=== PATIENT | female | born 1940 | race Caucasian/White ===

== ENCOUNTER → 2023-07-27 10:55 | Outpatient (REF) | payer OTHER, SELFPAY | LOC: WOUND 10:55 | PROVIDERS: ATTENDING PHYSICIAN Surgery; FAMILY PHYSICIAN Family Medicine | DX: L97.313 Non-pressure chronic ulcer of right ankle with necrosis of muscle (principal); M14.671 Charcot's joint, right ankle and foot; M14.672 Charcot's joint, left ankle and foot; Z96.641 Presence of right artificial hip joint; M25.372 Other instability, left ankle; M25.371 Other instability, right ankle; I10 Essential (primary) hypertension; G89.29 Other chronic pain | CPT/HCPCS: 11042 ==

== ENCOUNTER → 2023-09-20 18:32 | Outpatient (REF) | payer OTHER, SELFPAY | LOC: CLAB 18:32 | PROVIDERS: ATTENDING PHYSICIAN Family Medicine | DX: M19.90 Unspecified osteoarthritis, unspecified site (principal); M84.672K Pathological fracture in other disease, left ankle, subsequent encounter for fracture with nonunion; E66.01 Morbid (severe) obesity due to excess calories; I10 Essential (primary) hypertension; E78.5 Hyperlipidemia, unspecified; I89.0 Lymphedema, not elsewhere classified; M81.0 Age-related osteoporosis without current pathological fracture | CPT/HCPCS: 87070; 87077; 87147; 87186; 87205 ==

== ENCOUNTER → 2023-10-02 09:20 | Outpatient (REF) | payer OTHER, SELFPAY ==
[2023-10-02 11:04] LABS: % Basophils 0.8 % (0-2); % Eosinophils 17.2 % (0-6); % Immature Granulocytes 0.3 % (0-0.5); % Monocytes 8.5 % (1.7-9.3); % Neutrophils 42.2 % (42.2-75.2); Absolute Basophils 0.1 10^3/uL (0-0.2); Absolute Eosinophils 1.1 10^3/uL (0-0.7); Absolute Monocytes 0.5 10^3/uL (0.1-0.6); Absolute Neutrophils 2.7 10^3/uL (1.4-6.5); Hematocrit 27.8 % (37.0-47.0); Hemoglobin 9.5 g/dL (12.0-16.0); Mean Corp Hgb Conc. 34.2 g/dL (33.0-37.0); Mean Corpuscular Hgb 29.6 pg (27.0-31.0); Mean Corpuscular Volume 86.6 fL (81.0-99.0); Mean Platelet Volume 10.2 fL (7.4-10.4); Nucleated Red Blood Cells % 0 %; Platelet Count 224 10^3/uL (130-400); Red Blood Cell Count 3.21 10^6/uL (4.20-5.40); Red Cell Dist. Width 14.3 % (11.5-14.5); White Blood Cell Count 6.3 10^3/uL (4.8-10.8)
[2023-10-02 11:29] LABS: ALT (SGPT) 15 U/L (0-35); AST (SGOT) 28 U/L (14-36); Albumin 3.1 g/dl (3.5-5.0); Alkaline Phosphatase 90 U/L (38-126); Blood Urea Nitrogen 37 mg/dl (7-17); Calcium 9.2 mg/dl (8.4-10.2); Carbon Dioxide 20 mmol/L (22-30); Chloride 108 mmol/L (98-107); Glucose 87 mg/dl (70-99); Potassium 4.1 mmol/L (3.5-5.1); Sodium 133 mmol/L (135-145); Total Bilirubin 0.3 mg/dl (0.2-1.3); eGFR > 60.00
[2023-10-02 11:39] LABS: Erythrocyte Sed Rate 79 mm/hour (0-20)
[2023-10-02 12:15] LABS: Glycohemoglobin (HgbA1c) 5.7 % (4.0-5.6)
== END ==
LOC: OLABP 09:20
PROVIDERS: ATTENDING PHYSICIAN Family Medicine
DX: M19.90 Unspecified osteoarthritis, unspecified site (principal); M84.672K Pathological fracture in other disease, left ankle, subsequent encounter for fracture with nonunion; E66.01 Morbid (severe) obesity due to excess calories; I10 Essential (primary) hypertension; E78.5 Hyperlipidemia, unspecified; I89.0 Lymphedema, not elsewhere classified; M81.0 Age-related osteoporosis without current pathological fracture
CPT/HCPCS: 36415; 80053; 83036; 85025; 85652; 86140

== ENCOUNTER → 2023-10-06 10:49 | Outpatient (REF) | payer OTHER, SELFPAY ==
[2023-10-06 12:54] LABS: Blood Urea Nitrogen 47 mg/dl (7-17); Calcium 9.4 mg/dl (8.4-10.2); Carbon Dioxide 23 mmol/L (22-30); Chloride 107 mmol/L (98-107); Glucose 87 mg/dl (70-99); Potassium 4.3 mmol/L (3.5-5.1); Sodium 132 mmol/L (135-145); eGFR > 60.00
== END ==
LOC: OLABP 10:49
PROVIDERS: ATTENDING PHYSICIAN Family Medicine
DX: M19.90 Unspecified osteoarthritis, unspecified site (principal); I10 Essential (primary) hypertension; M84.672K Pathological fracture in other disease, left ankle, subsequent encounter for fracture with nonunion; E66.01 Morbid (severe) obesity due to excess calories; E78.5 Hyperlipidemia, unspecified; I89.0 Lymphedema, not elsewhere classified
CPT/HCPCS: 36415; 80048

== ENCOUNTER → 2023-10-19 09:51 | Outpatient (REF) | payer OTHER, SELFPAY ==
[2023-10-19 11:00] LABS: ALT (SGPT) 14 U/L (0-35); AST (SGOT) 26 U/L (14-36); Albumin 3.1 g/dl (3.5-5.0); Alkaline Phosphatase 74 U/L (38-126); Blood Urea Nitrogen 55 mg/dl (7-17); Calcium 9.5 mg/dl (8.4-10.2); Carbon Dioxide 21 mmol/L (22-30); Chloride 106 mmol/L (98-107); Glucose 89 mg/dl (70-99); Sodium 137 mmol/L (135-145); Total Bilirubin 0.3 mg/dl (0.2-1.3); Total Protein 6.1 g/dl (6.3-8.2); eGFR > 60.00
[2023-10-19 11:01] LABS: % Basophils 1.1 % (0-2); % Immature Granulocytes 0.2 % (0-0.5); % Lymphocytes 35.2 % (20.5-51.1); % Monocytes 11.4 % (1.7-9.3); % Neutrophils 42.1 % (42.2-75.2); Absolute Basophils 0.1 10^3/uL (0-0.2); Absolute Eosinophils 0.6 10^3/uL (0-0.7); Absolute Monocytes 0.6 10^3/uL (0.1-0.6); Absolute Neutrophils 2.4 10^3/uL (1.4-6.5); Hematocrit 29.2 % (37.0-47.0); Hemoglobin 9.9 g/dL (12.0-16.0); Mean Corp Hgb Conc. 33.9 g/dL (33.0-37.0); Mean Corpuscular Hgb 29.6 pg (27.0-31.0); Mean Corpuscular Volume 87.2 fL (81.0-99.0); Mean Platelet Volume 10.6 fL (7.4-10.4); Nucleated Red Blood Cells % 0 %; Platelet Count 220 10^3/uL (130-400); Red Blood Cell Count 3.35 10^6/uL (4.20-5.40); Red Cell Dist. Width 14.5 % (11.5-14.5); White Blood Cell Count 5.6 10^3/uL (4.8-10.8)
[2023-10-19 11:44] LABS: Erythrocyte Sed Rate 65 mm/hour (0-20)
== END ==
LOC: OLABPG 09:51
PROVIDERS: ATTENDING PHYSICIAN Family Medicine
DX: M19.90 Unspecified osteoarthritis, unspecified site (principal); I10 Essential (primary) hypertension; M84.672K Pathological fracture in other disease, left ankle, subsequent encounter for fracture with nonunion; E66.01 Morbid (severe) obesity due to excess calories; E78.5 Hyperlipidemia, unspecified; I89.0 Lymphedema, not elsewhere classified; M81.0 Age-related osteoporosis without current pathological fracture
CPT/HCPCS: 36415; 80053; 85025; 85652; 86140

== ENCOUNTER → 2023-10-23 13:40 | Outpatient (REF) | payer OTHER, SELFPAY | LOC: WOUND 13:40 | PROVIDERS: ATTENDING PHYSICIAN Surgery; FAMILY PHYSICIAN Family Medicine | DX: L97.313 Non-pressure chronic ulcer of right ankle with necrosis of muscle (principal); M14.671 Charcot's joint, right ankle and foot; M14.672 Charcot's joint, left ankle and foot; M25.372 Other instability, left ankle; M25.371 Other instability, right ankle; L97.309 Non-pressure chronic ulcer of unspecified ankle with unspecified severity; I10 Essential (primary) hypertension; G89.29 Other chronic pain; Z96.641 Presence of right artificial hip joint | CPT/HCPCS: 11042 ==

== ENCOUNTER → 2023-11-13 11:16 | Outpatient (REF) | payer OTHER, SELFPAY | LOC: WOUND 11:16 | PROVIDERS: ATTENDING PHYSICIAN Surgery; FAMILY PHYSICIAN Family Medicine | DX: L97.313 Non-pressure chronic ulcer of right ankle with necrosis of muscle (principal); M14.671 Charcot's joint, right ankle and foot; M14.672 Charcot's joint, left ankle and foot; M25.372 Other instability, left ankle; M25.371 Other instability, right ankle; L97.309 Non-pressure chronic ulcer of unspecified ankle with unspecified severity; I10 Essential (primary) hypertension; G89.29 Other chronic pain; Z96.641 Presence of right artificial hip joint | CPT/HCPCS: 99213 ==

== ENCOUNTER 2023-11-13 14:21 | Inpatient (IN) | payer OTHER, SELFPAY ==
[2023-11-13] VITALS (7 sets, daily range): BP systolic 103–145; BP diastolic 55–85; BMI 47.2; BMI 48.8
--- NOTE | 2023-11-13 12:28 | ED.GENMED ---
History of Present Illness
General
Chief Complaint: Skin Problem
Source: patient
Exam Limitations: none
Time Seen by Provider: 11/13/23 12:28
Nursing documentation reviewed up to this point in time: agreed with
Travel History
Have you had any contact with someone who has COVID-19?: No
Do you have any symptoms of coronavirus? Fever > 100 degrees, chills, cough, shortness of breath, sore throat, loss of taste or smell, muscle aches, or headache?: No
History of Present Illness
History of Present Illness:
The patient is a 83-year-old female who was sent from Dr. Dotson's office for admission for worsening of her right medial ankle wound infection. Patient reports that she has been on amoxicillin, ampicillin and Bactrim without significant
improvement. She denies fevers and chills. He denies nausea and vomiting. Patient reports she has had this wound for about 3 years.
Past History
Past History
ED Past Medical History: CAD (Cardiomyopathy), HTN, Hypothyroidism and Other (Constipation, PAD, Charcot deformity)
ED Past Surgical History: Orthopedic (R ankle)
Social History
Tobacco: Non-smoker
Alcohol: None
Personal: Other
Living: skilled nursing
Employment: Not employed
Family History
Family History: Other
Review of Systems
Review of Systems
Allergies reviewed?: Yes
All Other Systems: ROS reviewed and negative except as documented in HPI and ROS
Constitutional: Reports no symptoms
EENT: Reports no symptoms
Respiratory: Reports no symptoms
Cardiac: Reports no symptoms
ABD/GI: Reports no symptoms
: Reports no symptoms
Musculoskeletal: Reports no symptoms
Skin: Reports other
Neurological: Reports no symptoms
Endocrine: Reports no symptoms
Hematologic/Lymphatic: Reports no symptoms
Psychiatric: Reports no symptoms
Phy Exam
Physical Exam
Physical Exam:
Physical Exam
General: no apparent distress, not acutely ill
Neck: supple. no meningeal signs. normal psoterior pharynx
Heart: s1/s2 regular rate and rhythm, no murmur. equal radial pulses.
Lungs: no acute respiratory distress. clear bilaterally
Abdomen: normal bowel sounds. not tender. no CVAT
Neuro: alert and oriented. no focal neurological deficits
Skin: no rash
Psychiatric: well kept. interactive and cooperative
Extremities: 2+ pitting edema bilateral lower extremities. Deep wound of medial right ankle with exudative debris and surrounding erythema contained to medial ankle and right lower leg.
Course
Orders/Labs/Results
Orders:
Orders
11/13/23 12:51
Blood Culture Q30M
ANAMARIA Source: Blood/Venous
Specimen Description:
Comment: FROM 2 SEPARATE SITES
11/13/23 12:52
Basic Metabolic Panel Urgent
Complete Blood Count/With Diff Urgent
Lactic Acid Q4H
Comment: ON ICE, CANCEL 2ND ORDER IF FIRST LACTIC ACID LEVEL <2
Blood Culture Q30M
ANAMARIA Source: Blood/Venous
Specimen Description:
Comment: FROM 2 SEPARATE SITES
Abnormal Lab Results
11/13/23
12:52
RBC 3.92 L 10^6/uL
(4.20-5.40)
Hgb 11.5 L g/dL
(12.0-16.0)
Hct 35.0 L %
(37.0-47.0)
MCHC 32.9 L g/dL
(33.0-37.0)
RDW 14.6 H %
(11.5-14.5)
11/13/23 12:52
Vital Signs
Initial and Last Documented VS:
Initial Vital Signs
Temp Pulse Resp BP Pulse Ox
98.1 F 64 18 137/66 97
11/13/23 12:00 11/13/23 12:00 11/13/23 12:00 11/13/23 12:00 11/13/23 12:00
Last Documented Vital Signs
Temp Pulse Resp BP Pulse Ox
98.1 F 63 20 134/67 97
11/13/23 12:00 11/13/23 13:45 11/13/23 13:45 11/13/23 13:11 11/13/23 13:45
MDM/Problems Addressed
Differential Diagnosis Includes:
Infected wound, osteo myelitis, DVT
MDM/Problems Addressed:
Patient presents with acute on chronic drainage and erythema of right medial ankle wound
Chronic conditions affecting care:
Peripheral arterial disease
Acute Exacerbation and/or Progression of Chronic Illness:
Peripheral arterial disease
*Pulse Oximetry
Patient hypoxic: no
*EKG
Interpreted by ED Provider?: NA
*Diversity Manager Interpretation
Rate: Diversity Manager- N/A
*Critical Care Note
Total Time (30-74mins, 75-104mins- exclusive of procedures): Not Applicable
Data Reviewed
Review of Other/Old Records Reveals: Other (Dr. Dotson who provided history via [place] text)
Source: patient
Update Note
Update Note:
I reached out to infectious disease via [place] text. I will have infectious disease determine what IV antibiotic is appropriate. Patient is hemodynamically stable, afebrile and nontoxic-appearing, therefore, I feel antibiotics will be held off
until infectious disease makes a decision today.
ED Attending Note
-
Portions of this chart may have been created with voice recognition software.� Occasional wrong word or��sound alike� substitutions may have occurred due to the inherent limitations of voice recognition software.
Discharge Plan
Departure
Patient Disposition: Admit
Date of Disposition: 11/13/23
Time of Disposition: 12:28
Presentation/result/management discussed w/ accepting MD/DO: Hospitalist
Patient with high blood pressure during this ER visit?: Yes
Condition: Good
Discharge Problem:
infected wound of right ankle
Prescriptions:
No Action
Eliquis 5 MG tablet
5 mg PO BID Qty: 30 0RF
acetaminophen [Acetaminophen Extra Strength] 500 MG tablet
1,000 mg PO TID
ascorbic acid (vitamin C) [Vitamin C] 500 MG tablet
500 mg PO BID
simvastatin 20 MG tablet
20 mg PO HS
lactase [Dairy Relief] 1 CAPSULE tablet
1 cap PO BID
cholecalciferol (vitamin D3) [Vitamin D3] 25 MCG capsule
50 mcg PO DAILY
coenzyme Q10 200 MG capsule
400 mg PO DAILY
Glucosamine Sulf-Chondroitin 1 EACH capsule
2 cap PO BID
[place] 3-6-9 1,200 MG capsule
2,400 mg PO DAILY
Theragen Tablet
1 tab PO DAILY
losartan-hydrochlorothiazide 100-25 mg Tablet
1 tab PO HS
magnesium hydroxide [Milk of Magnesia] 400 mg/5 mL Suspension
30 ml PO Q96H PRN (Reason: day 4 no bm)
bisacodyl [Dulcolax (bisacodyl)] 10 mg Suppository
10 mg [place] DAILYPRN PRN (Reason: constipation)
Fleet Enema 19-7 gram/118 mL Enema
118 ml [place] DAILYPRN PRN (Reason: day 6 no bm, dulcolax ineffective)
levothyroxine 200 mcg Tablet
200 mcg PO DAILY
gentamicin 0.1 % Ointment
1 applic TOPICAL BID
Rx Instructions:
apply to right medial ankle
Saccharomyces boulardii [Florastor] 250 mg Capsule
250 mg PO DAILY
Interventions
Interventions:
*Risk Screen - Suicide Last Done: 11/13/23 12:04
*General Assessment Last Done: 11/13/23 12:04
*Neglect/Abuse Screening Last Done: 11/13/23 12:04
ED- Fall Risk Assessment Last Done: 11/13/23 12:35
*ED COVID-19 Vaccine History Last Done: 11/13/23 12:35
ED-Skin Assessment Last Done: 11/13/23 12:35
Discharge Date and Time
Print Language: ICELANDIC
--- NOTE | 2023-11-13 13:30 | HPS.HSE ---
Addendum entered and electronically signed by Huong Rider MD 11/13/23 14:51:
Addendum
I saw and examined the patient.
The CREDIT INTERN or PA's note was reviewed and I agree with the note.
Comment:
83 years old female was sent for IV antibiotic for chronic right medial ankle ulcer with erythema. Patient denied tenderness or pain. She denied chills or fever. No leukocytosis on admission. Patient reported that wound did not look different
from before.
Physical Exam
General: Comfortable, Conversant and Morbidly Obese; No Pain, Fever or Chills
HEENT: NormoCephalic, Anicteric, Moist mucous membranes, PERRLA and [place] Conjunctivae
Respiratory: Clear; No Wheezes, Rales or Rhonchi
Cardiac: S1/S2 and Regular Rhythm; No Murmur, Rub, Gallop or Peripheral Edema
GI: Soft, Non Tender, Non Distended, Normal Bowel Sounds and No Hepatosplenomegaly
Rectal: Deferred by Provider
Genito-urinary: Deferred by me
Musculoskeletal: No Clubbing, No Cyanosis, Edema, Right Lower Extremity (+1) and Other (Chronic large open weeping wound right medial aspect of ankle with surrounding erythema which patient states is chronic); No Edema, Left Upper Extremity, Edema,
Right Upper Extremity or Edema, Left Lower Extremity
Skin: Warm, Dry and Ulcers (Chronic large open weeping wound right medial aspect of ankle with surrounding erythema which patient states is chronic, chronic Charcot right foot both feet); No Rash
Neuro: AO x 3, Nonfocal/grossly intact, Cranial Nerves Intact and No Sensory Deficits; No Slurred Speech, Facial Droop or Tremors
Psych: Calm
#Chronic nonhealing right ankle wound x 4.5 years
#HX PAD/tib-fib fracture with hardware right ankle 1995
Patient follows with Dr. Dotson completed course of amoxicillin, Bactrim, ampicillin
-Per patient, the wound did not look different. She had no tenderness on examination.
No fevers or chills. No leukocytosis. Patient had elevated ESR and CRP in October 2023. Will recheck
-Continue Tylenol 1000 g 3 times daily scheduled
- hold Eliquis until seen by Vas surgery
Appreciate ID and vascular help
# Chronic Charcot deformity bilateral feet
#HTN-benign
134/67
Continue losartan/HCTZ at bedtime
#Hypothyroidism
-Continue levothyroxine 200 mcg p.o. daily
#HLD
Continue simvastatin 20 mg at bedtime
#Parox Afib
hold eliquis until seen by Vasc surgery
2D echo 05/23/2023: EF 65%, normal LV LVSF, trace MR/aortic insufficiency, mild TR, pulm pressure 32 mmHg
#Chronic cough post-COVID
#Chronic lactose intolerance
-Continue Lactaid 1 capsule twice daily
Morbid obesity secondary to increased calorie consumption/immobiliy�BMI 47.2 kg
-Weight loss recommended, low-fat diet
DVT prophylaxis
- hold eliquis until seen by Vasc surgery
-will give sq heparin q12h
Full code
Total time spent to see the patient, examine the patient on the floor, review data and lab results, discuss treatment plan with patient, ER doctor, nursing staff around 75 minutes
Original Note:
Family Physician
-
Family Physician: * NONE
Chief Complaint
-
Chronic wound right ankle
History of Present Illness
83-year-old female who follows with Dr. Dotson for a chronic ongoing right ankle wound x 4.5 years. She reports the wound occurred after wearing a shortcut boot and is never improved. She states for the past month and a half she had increased
drainage from the right medial aspect of the wound with chronic surrounding erythema. she has completed courses of amoxicillin, Bactrim, ampicillin without improvement. She denies fever, chills, chest pain, palpitations, shortness breath, cough,
abdominal pain, nausea, vomit, diarrhea, urinary symptoms. She was sent to the ER by Dr. Dotson for evaluation of worsening infection. Patient has past medical history of PAD, chronic Charcot deformity, CAD/cardiomyopathy, HTN, HLD,
hypothyroidism, chronic cough post-COVID, lactose intolerance
Medical History
Past Medical History
Past Medical History: Reports Other
Additional Past Medical History:
PAD, chronic Charcot deformity, CAD/cardiomyopathy, HTN, HLD, hypothyroidism, chronic cough post-COVID, lactose intolerance
Past Surgical History: Reports Other
Additional Past Surgical History:
Right ankle surgery tib-fib fracture with hardware right ankle 1995
Cholecystectomy
Right hip surgery
Toe surgery
Social History
Tobacco: Non-smoker
Alcohol: None
Drug: None
Personal: Single
Living: Jail ([facility] assisted living)
Employment: Retired
Family History
Family History: Other (father lung ca, sister pancreatic ca age 69, mother DC in sleep )
Allergies / Home Medications
Allergies reflects when Allergies were last updated in [facility].
Home Medications with original date entered in [facility]
Allergy/Medication List:
Allergies
Allergy/AdvReac Type Severity Reaction Status Date / Time
No Known Allergies Allergy Verified 10/17/21 10:48
Home Medications
apixaban 5 mg tablet (Eliquis) 5 mg PO BID #30 tabs 09/08/19
acetaminophen 500 mg tablet (Acetaminophen Extra Strength) 1,000 mg PO TID 10/17/21
ascorbic acid (vitamin C) 500 mg tablet (Vitamin C) 500 mg PO BID 10/17/21
cholecalciferol (vitamin D3) 25 mcg (1,000 unit) capsule (Vitamin D3) 50 mcg PO DAILY 10/17/21
coenzyme Q10 200 mg capsule 400 mg PO DAILY 10/17/21
fish, borage, flaxseed oils-omega 3,6,9 comb no.1 1,200 mg capsule ([place] 3-6-9) 2,400 mg PO DAILY 10/17/21
glucosamine sulfate dipotassium Cl 500 mg-chondroitin 400 mg capsule (Glucosamine Sulfate 2 KCL-Chondroitin) 2 cap PO BID 10/17/21
lactase 3,000 unit tablet (Dairy Relief) 1 cap PO BID 10/17/21
simvastatin 20 mg tablet 20 mg PO HS 10/17/21
Saccharomyces boulardii 250 mg capsule (Florastor) 250 mg PO DAILY 11/13/23
bisacodyl 10 mg rectal suppository (Dulcolax (bisacodyl)) 10 mg MT DAILYPRN PRN constipation 11/13/23
gentamicin 0.1 % topical ointment 1 applic topical BID 11/13/23
levothyroxine 200 mcg tablet 200 mcg PO DAILY 11/13/23
losartan 100 mg-hydrochlorothiazide 25 mg tablet 1 tab PO HS 11/13/23
magnesium hydroxide 400 mg/5 mL oral suspension (Milk of Magnesia) 30 ml PO Q96H PRN day 4 no bm 11/13/23
sodium phosphates 19 gram-7 gram/118 mL enema (Fleet Enema) 118 ml MT DAILYPRN PRN day 6 no bm, dulcolax ineffective 11/13/23
therapeutic multivitamin 1 tab PO DAILY 11/13/23
Review of Systems
-
History Source: Patient
A 12 point ROS was completed and negative except as noted: Yes
Constitutional: Denies Fever or Chills
EENT: Denies Sore Throat or Runny Nose
Respiratory: Denies Cough
Cardiac: Denies Chest Pain, Diaphoresis, Palpitations or Syncope
Abdomen/GI: Denies Abdominal Pain, Nausea, Vomiting, Diarrhea, Constipated, Bloody Stools or Black Stools
: Denies Dysuria, Frequency, Flank Pain, Incontinence, Difficulty Voiding or Urgency
Musculoskeletal: Reports Other (Chronic large open weeping wound right medial aspect of ankle with surrounding erythema which patient states is chronic); Denies Joint Pain
Skin: Denies Itching or Rash
Neurological: Denies Dizzy, Headache or Weakness
Endocrine: Reports No Symptoms
Hematologic/Lymphatic: Reports No Symptoms
Psych: Reports Calm
Physical Exam
Vital Signs
Vital Signs
Temp Pulse Resp BP Pulse Ox
98.1 F 68 16 134/67 100
11/13/23 12:00 11/13/23 13:16 11/13/23 13:16 11/13/23 13:11 11/13/23 13:16
Physical Exam
General: Comfortable, Conversant and Morbidly Obese; No Pain, Fever or Chills
HEENT: NormoCephalic, Anicteric, Moist mucous membranes, PERRLA and [place] Conjunctivae
Respiratory: Clear; No Wheezes, Rales or Rhonchi
Cardiac: S1/S2 and Regular Rhythm; No Murmur, Rub, Gallop or Peripheral Edema
GI: Soft, Non Tender, Non Distended, Normal Bowel Sounds and No Hepatosplenomegaly
Rectal: Deferred by Provider
Genito-urinary: Deferred by me
Musculoskeletal: No Clubbing, No Cyanosis, Edema, Right Lower Extremity (+1) and Other (Chronic large open weeping wound right medial aspect of ankle with surrounding erythema which patient states is chronic); No Edema, Left Upper Extremity, Edema,
Right Upper Extremity or Edema, Left Lower Extremity
Skin: Warm, Dry and Ulcers (Chronic large open weeping wound right medial aspect of ankle with surrounding erythema which patient states is chronic, chronic Charcot right foot both feet); No Rash
Neuro: AO x 3, Nonfocal/grossly intact, Cranial Nerves Intact and No Sensory Deficits; No Slurred Speech, Facial Droop or Tremors
Psych: Calm
Impression/Plan
-
Impression/plan:
Admit to MedSurg
#Chronic nonhealing right ankle wound x 4.5 years
#HX PAD/tib-fib fracture with hardware right ankle 1995
Patient follows with Dr. Dotson completed course of amoxicillin, Bactrim, ampicillin
-Consult ID
-Consult vascular surgery
-Continue Tylenol 1000 g 3 times daily scheduled
- hold eliquis until seen by Vasc surgery
# Chronic Charcot deformity bilat feet
#HTN-benign
134/67
Continue losartan/HCTZ at bedtime
#Hypothyroidism
-Continue levothyroxine 200 mcg p.o. daily
#HLD
Continue simvastatin 20 mg at bedtime
#Parox Afib
hold eliquis until seen by Vasc surgery
2D echo 05/23/2023: EF 65%, normal LV LVSF, trace MR/aortic insufficiency, mild TR, pulm pressure 32 mmHg
#Chronic cough post-COVID
#Chronic lactose intolerance
-Continue Lactaid 1 capsule twice daily
Morbid obesity secondary to increased calorie consumption/immobiliy�BMI 47.2 kg
-Weight loss recommended, low-fat diet
DVT prophylaxis
- hold eliquis until seen by Vasc surgery
-will give sq heparin q12h
Full code
[2023-11-13 13:31] LABS: % Basophils 0.7 % (0-2); % Eosinophils 3.3 % (0-6); % Immature Granulocytes 0.3 % (0-0.5); % Lymphocytes 34.2 % (20.5-51.1); % Monocytes 9.3 % (1.7-9.3); % Neutrophils 52.2 % (42.2-75.2); Absolute Basophils 0.1 10^3/uL (0-0.2); Absolute Eosinophils 0.2 10^3/uL (0-0.7); Absolute Lymphocytes 2.4 10^3/uL (1.2-3.4); Absolute Monocytes 0.6 10^3/uL (0.1-0.6); Absolute Neutrophils 3.6 10^3/uL (1.4-6.5); Hemoglobin 11.5 g/dL (12.0-16.0); Mean Corp Hgb Conc. 32.9 g/dL (33.0-37.0); Mean Corpuscular Hgb 29.3 pg (27.0-31.0); Mean Corpuscular Volume 89.3 fL (81.0-99.0); Mean Platelet Volume 9.9 fL (7.4-10.4); Nucleated Red Blood Cells % 0 %; Platelet Count 231 10^3/uL (130-400); Red Blood Cell Count 3.92 10^6/uL (4.20-5.40); Red Cell Dist. Width 14.6 % (11.5-14.5); White Blood Cell Count 6.9 10^3/uL (4.8-10.8)
[2023-11-13 13:50] LABS: Lactic Acid 1.4 mmol/L (0.7-2.0)
[2023-11-13 14:15] LABS: Blood Urea Nitrogen 41 mg/dl (7-17); Calcium 9.9 mg/dl (8.4-10.2); Carbon Dioxide 23 mmol/L (22-30); Chloride 105 mmol/L (98-107); Estimated Creatinine Clearance 88 ml/min; Glucose 96 mg/dl (70-99); Sodium 137 mmol/L (135-145); eGFR > 60.00
--- NOTE | 2023-11-13 14:57 | CON.VAS ---
Addendum entered and electronically signed by Michael Rousseau MD 11/13/23 16:40:
Seen and examined by ED Velázquez. Agree with findings as noted below. 83-year-old female with medical history as noted below. Known to me from the outpatient setting from 4 years ago. I had last seen her in 2019. At that time I noted that I had
concerns that she had Charcot foot deformity resulting in ulceration and that there is not much that I could do from a revascularization perspective to help that. In addition she is morbidly obese and not very active. Has been following with wound
care. She has had this wound for 4 years in the right medial malleolus region. Concern from wound care that the wound had worsened slightly recently as well as surrounding erythema. Therefore sent to emergency room. Exam as noted below. She has
palpable DP pulses bilaterally. She is morbidly obese and therefore difficulty palpating femoral and popliteal pulses due to her habitus. Her feet are both pink and warm and well-perfused. Her right medial malleolus wound is moderate size with
likely diameter of approximately 6 cm. Depth difficult to ascertain exactly but may be about 1 cm. She has Charcot deformities of both ankles. Plan/likely not much I can do here from a peripheral vascular perspective. Would recommend peripheral
arterial noninvasive studies to ensure adequate perfusion for healing. But would continue with antibiotics/wound care for now. Will follow-up studies.
Original Note:
Consultation
Consultation Request
Performing Provider: Soham
Reason for Consultation: Chronic wound right ankle
Medical History
-
Chief Complaint: Right ankle wound
History of Present Illness:
83-year-old female with past medical history chronic Charcot deformity, chronic right ankle wound, CAD/cardiomyopathy, hypertension, hyperlipidemia presenting today to the ER from [facility] assisted living for cellulitis of right ankle. Vascular
consult for PAD romelia. Patient states she saw Dr. Rousseau in consult a few years ago. She states he prescribed compression boots for her lymphedema which she wears daily. Patient states she takes a few steps to her wheelchair for the bathroom during
the day but is otherwise bed/wheelchair bound for the past 4 years. Patient states her wound started 4.5 years ago after wearing a boot. Since then the patient has followed with Dr. Dotson once a week at [facility]. Over the past week the wound
has become erythematous with drainage. She states she was on 3 different antibiotics that did not resolve the redness which led to this admission.
Patient seen at bedside this afternoon in the ER. Patient denies pain. She is able to move her toes and ankle. Palpable femoral and DP pulse on the right side. Foot is warm. Medial ankle wound is about 7 cm x 7 cm. Shallow, fibrinous, with
cellulitic surrounding skin. No drainage noted at this time.
Past Medical History
Past Medical History: CAD (Cardiomyopathy, A-fib on Eliquis), HTN, Hypothyroidism and Other (Hyperlipidemia, lymphedema, chronic Charcot deformity, chronic right ankle wound)
Past Surgical History: Cholecystectomy and Orthopedic (Right ankle hardware from a tib-fib fracture in 1995, hip surgery, toe procedure)
Social History
Tobacco: Non-Smoker
Alcohol: None
Drug: None
Personal: Single
Living: Assisted Living
Employment: Retired
Family History
Family History: CAD and Cancer
Allergies / Home Medications
Allergy/AdvReac Type Severity Reaction Status Date / Time
No Known Allergies Allergy Verified 10/17/21 10:48
�Medication �Instructions �Recorded �Confirmed �Type
apixaban 5 mg tablet (Eliquis) 5 mg PO BID #30 tabs 09/08/19 11/13/23 Rx
acetaminophen 500 mg tablet 1,000 mg PO TID 10/17/21 11/13/23 History
(Acetaminophen Extra Strength)
ascorbic acid (vitamin C) 500 mg 500 mg PO BID 10/17/21 11/13/23 History
tablet (Vitamin C)
cholecalciferol (vitamin D3) 25 50 mcg PO DAILY 10/17/21 11/13/23 History
mcg (1,000 unit) capsule (Vitamin
D3)
coenzyme Q10 200 mg capsule 400 mg PO DAILY 10/17/21 11/13/23 History
fish, borage, flaxseed oils-omega 2,400 mg PO DAILY 10/17/21 11/13/23 History
3,6,9 comb no.1 1,200 mg capsule
([place] 3-6-9)
glucosamine sulfate dipotassium Cl 2 cap PO BID 10/17/21 11/13/23 History
500 mg-chondroitin 400 mg capsule
(Glucosamine Sulfate 2
KCL-Chondroitin)
lactase 3,000 unit tablet (Dairy 1 cap PO BID 10/17/21 11/13/23 History
Relief)
simvastatin 20 mg tablet 20 mg PO HS 10/17/21 11/13/23 History
Saccharomyces boulardii 250 mg 250 mg PO DAILY 11/13/23 11/13/23 History
capsule (Florastor)
bisacodyl 10 mg rectal suppository 10 mg [place] DAILYPRN PRN constipation 11/13/23 11/13/23 History
(Dulcolax (bisacodyl))
gentamicin 0.1 % topical ointment 1 applic topical BID 11/13/23 11/13/23 History
levothyroxine 200 mcg tablet 200 mcg PO DAILY 11/13/23 11/13/23 History
losartan 100 1 tab PO HS 11/13/23 11/13/23 History
mg-hydrochlorothiazide 25 mg tablet
magnesium hydroxide 400 mg/5 mL 30 ml PO Q96H PRN day 4 no bm 11/13/23 11/13/23 History
oral suspension (Milk of Magnesia)
sodium phosphates 19 gram-7 118 ml [place] DAILYPRN PRN day 6 no 11/13/23 11/13/23 History
gram/118 mL enema (Fleet Enema) bm, dulcolax ineffective
therapeutic multivitamin 1 tab PO DAILY 11/13/23 11/13/23 History
Review of Systems
-
History Source: Patient
All other systems: Negative unless noted
Constitutional: Reports No Symptoms
EENT: Reports No Symptoms
Respiratory: Reports No Symptoms
Cardiac: Reports No Symptoms
Vascular: Denies Leg Pain / Claudication
Abdomen/GI: Reports No Symptoms
: Reports No Symptoms
Musculoskeletal: Reports Edema
Skin: Reports Other (Chronic right ankle wound, redness)
Neurological: Reports No Symptoms
Endocrine: Reports No Symptoms
Physical Exam
Vital Signs
Temp Pulse Resp BP Pulse Ox
98.1 F 68 23 103/85 96
11/13/23 12:00 11/13/23 14:30 11/13/23 14:30 11/13/23 14:02 11/13/23 14:30
Lab Results
11/13/23 12:52
11/13/23 12:52
Physical Exam
General: No Apparent Distress
HEENT: Normocephalic and Atraumatic
Respiratory: Non Labored Respirations
Cardiac: Negative JVD
Breast: Deferred by me
GI: Soft and Non Tender
Musculoskeletal: No Clubbing, No Cyanosis and Edema (+3 in bilateral lower extremities)
Skin: Warm and Other (7 x 7 medial ankle chronic wound with fibrinous base, surrounding erythema)
Neuro: Awake, Alert and Oriented
Psych: Calm
Pulses: Bilateral Femoral: +2 and Bilateral Dorsalis Pedis: +2
Assessment / Plan
-
83-year-old female with chronic right ankle wound (4.5 years), Charcot deformity, lymphedema, cellulitis
Palpable DP pulses bilaterally
Plan:
-Arterial ultrasounds with AYLIN/TBI
-Bilateral lower extremity venous insufficiency studies ordered
-Local wound care
-Compression and elevation
-Will follow-up with patient after ultrasound studies
-Seen and assessed with Dr. Rousseau
Data Reviewed
-
Labs: Labs Reviewed by me
[2023-11-13 15:42] LABS: Erythrocyte Sed Rate 67 mm/hour (0-20)
--- NOTE | 2023-11-13 15:49 | CON.ID ---
Consultation
-
Date/Time Consultation Requested: 11/13/2023 1403
Date/Time Consultation Performed: 11/13/2023 1530
Requesting Provider: Becca Gallagher
Performing Provider: Dr. Fairbanks
Reason for Consultation: Chronic R ankle wound
Chief Complaint / Past History
History of Present Illness
Miriam Delgado is an 83-year-old female with a significant past medical history of a chronic right medial ankle wound and morbid obesity being evaluated at the request of Becca Gallagher in regards to further care of the ankle wound. History is
obtained from chart review, along with patient interview.
The patient reports that she has had a right medial ankle wound for at least the past 4 years and has been followed in the wound care center for a good portion of that time. She reports that over the past several weeks the wound is worsening, and
she was sent in from the wound care center today to see if there is anything else to do.
She reports little pain in the area. She reports occasional yellowish discharge, but mostly serous.
She has an underlying history of morbid obesity, along with apparent lymphedema, and she reports that she uses lymphedema pumps twice daily. The rest of the day she sits in her wheelchair with her leg dependent. She notes that she has in the past
used Farrow wraps without significant success.
Past History
Additional Past Medical History:
CAD
HTN
Hypothyroidism
Morbid obesity
Constipation
PAD
Charcot arthropathy
Additional Past Surgical History:
Right ankle surgery (plate and screws)
Allergy History:
No Known Allergies Allergy (Verified 10/17/21 10:48)
Social History
Tobacco: Non-Smoker
Alcohol: None
Drug: None
Living: [facility]
Employment: Retired
Family History
Family History: Not Pertinent
Review of Systems
Vital Signs
Temp Pulse Resp BP Pulse Ox
98.1 F 58 16 116/55 99
11/13/23 12:00 11/13/23 15:15 11/13/23 15:15 11/13/23 15:00 11/13/23 15:15
Physical Exam
Physical Exam
Constitutional: No Acute Distress, Comfortable, Chronically Ill, Non-toxic and Obese
Eyes: Pupils Equal, Pupils Round, No Conjunctival Hemorrhage and Sclera Anicteric
Oral: No Thrush and No Ulcers
Cardiovascular: S1/S2; Negative S3/S4
Pulmonary: Clear and Non Labored
Gastrointestinal: Soft, Non Tender, Non Distended and Normal Bowel Sounds
Extremities: Edema (4+ LE edema / Lymphedema) and Erythema
Wound: Other (Right medial ankle wound with slough in the base. Heaped up borders. Significant periwound erythema and tense overlying edema. Mild tenderness to palpation.)
Neurological: Awake and Alert
Psychological: Calm
.
Lab / Diagnostic Study Results
11/13/23 12:52
11/13/23 12:52
Abs Immat Gran (auto) 0.0 10^3/uL (0-0.05) 11/13/23 12:52
Absolute Neuts (auto) 3.6 10^3/uL (1.4-6.5) 11/13/23 12:52
Absolute Lymphs (auto) 2.4 10^3/uL (1.2-3.4) 11/13/23 12:52
Absolute Monos (auto) 0.6 10^3/uL (0.1-0.6) 11/13/23 12:52
Absolute Basos (auto) 0.1 10^3/uL (0-0.2) 11/13/23 12:52
Immature Gran % 0.3 % (0-0.5) 11/13/23 12:52
Neutrophils % 52.2 % (42.2-75.2) 11/13/23 12:52
Lymphocytes % 34.2 % (20.5-51.1) 11/13/23 12:52
Monocytes % 9.3 % (1.7-9.3) 11/13/23 12:52
Eosinophils % 3.3 % (0-6) 11/13/23 12:52
Basophils % 0.7 % (0-2) 11/13/23 12:52
ESR Cancelled 11/13/23 14:51
Lactic Acid Cancelled 11/13/23 16:15
C-Reactive Protein Cancelled 11/13/23 14:51
Microbiology Results
Micro:
11/13/23 12:52 Blood Culture - Pending
Blood/Venous
11/13/23 12:51 Blood Culture - Pending
Blood/Venous
Imaging:
09/19/2022 MRI right ankle: There is no discrete abscess or fluid collection. There is no finding to suggest osteomyelitis. There is mild soft tissue edema. The previous exam revealed significant tenosynovitis with fluid surrounding the flexor
digitorum longus tendon. This is no longer visualized. There is atrophy of the distal lower leg muscles however the tendons are intact. There is continued increased degenerative joint disease at the tibiotalar joint, which appears to be more
unstable on the current exam. There is persistent lateral deviation of the foot with regard to the ankle. Severe artifact overlying the distal fibula hardware and the screws overlying the medial malleolus. A subtle area of abnormality could easily
be missed due to this artifact. No definite finding to suggest osteomyelitis however the exam is severely limited as described. No acute fracture or dislocation.
Assessment / Plan
Chronic medial right ankle wound with recent worsening.
Marked lower extremity edema/lymphedema
Suspected cellulitis right lower extremity
Morbid obesity
CAD
HTN
Hypothyroidism
Morbid obesity
Constipation
PAD
Recommendations:
Begin vancomycin.
Local care to the wound.
Would begin light Antony wrap's, along with lower extremity elevation to the level of the heart at least 1-1/2 to 2 hours out of every 6.
Check x-ray of the right ankle.
--- NOTE | 2023-11-13 16:03 | PHA.VAN.IN ---
Assessment
- Assessment
Renal Function: Appears similar to baseline (BUN elevated from normal limits but appears similar to prior trends)
Plan
- Plan
Initial / Loading Dose: 2000mg - administration pending
Maintenance Regimen: dosing by level to ensure clearing appropriately with BUN
Monitoring: random 11/13 599
Estimated CrCl may overestimate vanc clearance due to BMI
Will start with dose by level initially to ensure clearing appropriately with elevated BUN before scheduling further dosing
Pharmacokinetics Vancomycin I
- -
Patient Age: 83
Patient Sex: Female
Vancomycin Day #: 1
Indication: Skin And Soft Tissue
Requesting Provider: Dr. Fairbanks
Pertinent Antimicrobial Allergies:
NKDA
Height / Weight:
Height 5 ft 2 in
Actual Weight 117 kg
Pertinent Past Medical History: BMI ~47
- Vital Signs / Lab Results
Temp Pulse Resp BP Pulse Ox
98.1 F 58 16 116/55 99
11/13/23 12:00 11/13/23 15:15 11/13/23 15:15 11/13/23 15:00 11/13/23 15:15
Lab Results - Hematology
11/13/23
12:52
WBC 6.9
Lab Results - Chemistry
11/13/23
12:52
BUN 41 H
Creatinine 0.6
Estimated Creat Clear 88
Albumin Cancelled
11/13/23 11/13/23
12:52 16:15
Lactic Acid 1.4 Cancelled
[2023-11-13] MEDS: VANCOCIN 540 MG IV (16:33)
[2023-11-13] MEDS: TYLENOL PO (17:30)
--- NOTE | 2023-11-13 19:23 | PTCARENOTE ---
Received patient from ED AAOx3. Pt oriented to room. Pt arrived to floor with IV Vancomycin infusing. Pt complained around 182 that her head was itching. Pt noted to have redness to bilateral cheeks and neck. Pt stated 'that redness has been
there for about a week'. Vancomycin stopped. Dr. Rider made aware. Cont to assess patient status.
[2023-11-13] MEDS: VITAMIN C 500 MG PO (21:06)
[2023-11-13] MEDS: LACTAID 1 CAPSULE PO (21:06)
[2023-11-13] MEDS: LIPITOR 10 MG PO (21:07)
[2023-11-13] MEDS: TYLENOL 1000 MG PO (21:07)
[2023-11-13] MEDS: HYZAAR 100-25 TABLET 1 TAB PO (21:11)
[2023-11-14 05:36] LABS: % Basophils 0.7 % (0-2); % Eosinophils 4.1 % (0-6); % Immature Granulocytes 0.3 % (0-0.5); % Lymphocytes 32.9 % (20.5-51.1); % Monocytes 10.7 % (1.7-9.3); % Neutrophils 51.3 % (42.2-75.2); Absolute Eosinophils 0.2 10^3/uL (0-0.7); Absolute Lymphocytes 1.9 10^3/uL (1.2-3.4); Absolute Monocytes 0.6 10^3/uL (0.1-0.6); Hematocrit 30.9 % (37.0-47.0); Hemoglobin 10.3 g/dL (12.0-16.0); Mean Corp Hgb Conc. 33.3 g/dL (33.0-37.0); Mean Corpuscular Hgb 29.2 pg (27.0-31.0); Mean Corpuscular Volume 87.5 fL (81.0-99.0); Mean Platelet Volume 10.1 fL (7.4-10.4); Nucleated Red Blood Cells % 0 %; Platelet Count 219 10^3/uL (130-400); Red Blood Cell Count 3.53 10^6/uL (4.20-5.40); Red Cell Dist. Width 14.3 % (11.5-14.5); White Blood Cell Count 5.9 10^3/uL (4.8-10.8)
[2023-11-14 05:51] LABS: Vancomycin Random 8.9 ug/ml
[2023-11-14 06:03] LABS: Blood Urea Nitrogen 32 mg/dl (7-17); Calcium 9.4 mg/dl (8.4-10.2); Carbon Dioxide 23 mmol/L (22-30); Chloride 107 mmol/L (98-107); Estimated Creatinine Clearance 77 ml/min; Glucose 98 mg/dl (70-99); Potassium 3.9 mmol/L (3.5-5.1); Sodium 138 mmol/L (135-145); eGFR > 60.00
[2023-11-14 07:00] VITALS: BP 102/62
--- NOTE | 2023-11-14 08:14 | PHA.VAN.FU ---
Vancomycin Assessment / Plan
- Assessment
Renal Function: Stable
WBC's are: WNL
In the past 24 hrs, patient has been: Afebrile
- Assessment - Therapeutic Drug Monitoring
Random Level: 8.9 - drawn ~12.5H after 2g loading dose
- Dosing Plan
Adjust Regimen to: Vanc 1000mg Q12H - first dose now then 1800
New Regimen Predicts: AUC (500), Peak (29.5), Trough (13.9)
- Monitoring Plan
No level(s) ordered at this time: consider levels in next few days
- Follow Up
Pharmacy will continue to follow.
Vancomycin Follow UP
- -
Patient Age: 83
Patient Sex: Female
Vancomycin Day #: 2
Indication: Skin And Soft Tissue
Requesting Provider: Dr. Fairbanks
Pertinent Antimicrobial Allergies:
NKDA
Height / Weight:
Height 5 ft 2 in
Actual Weight 120.882 kg
Pertinent Past Medical History: BMI ~47
- Vital Signs / Lab Results
Temp Pulse Resp BP Pulse Ox
98.7 F 71 17 137/59 96
11/13/23 23:33 11/13/23 23:33 11/13/23 23:33 11/13/23 23:33 11/13/23 23:33
Lab Results - Hematology
11/13/23 11/14/23
12:52 05:05
WBC 6.9 5.9
Lab Results - Chemistry
11/13/23 11/14/23
12:52 05:05
BUN 41 H 32 H
Creatinine 0.6 0.7
Estimated Creat Clear 88 77
Albumin Cancelled
11/13/23 11/13/23
12:52 16:15
Lactic Acid 1.4 Cancelled
Therapeutic Drug Monitoring
Random Vancomycin 8.9 ug/ml 11/14/23 05:05
[2023-11-14] MEDS: TYLENOL 1000 MG PO ×3 (08:45→22:04)
[2023-11-14] MEDS: SYNTHROID 200 MCG PO (08:45)
[2023-11-14] MEDS: LACTAID PO ×2 (08:45→10:06)
[2023-11-14] MEDS: VANCOCIN IV ×2 (08:45→10:05)
[2023-11-14] MEDS: FLORASTOR 250 MG PO (08:45)
[2023-11-14] MEDS: VITAMIN C PO (09:16)
--- NOTE | 2023-11-14 09:55 | WOUNDNOTE ---
R MEDIAL ANKLE WITH PHOTO FLASH
--- NOTE | 2023-11-14 10:06 | WOUNDNOTE ---
WON RN note: Patient admitted with R ankle wound infection.
See H&P for complete history. Lives at [facility].
PMH: Obesity, R ankle surgery, Lymphedema-uses pumps 2xper day, PAD, A fib, Charcot feet and HTN.
Wound Location and type/assessment: Patient admitted with: R medial ankle full thickness wound started from rubbing against an Antonella boot for Charcot 4 yrs ago, patient reports. Went to [facility] for debridement of wound 11/13/23 and was sent to ER
for cellulitis. Spoke to Dr. Dotson who reviewed current wound care, compression and foot wear. Biopsy done of wound in past but not recently, considering another biopsy states Dr. Dotson. Patient reports Santyl used in past and some sort of
strong wound spinning frame cleaner, did not tolerate,'burned.' Using a sneaker for R foot and custom fit Charcot boot for L foot. Patient states she gets herself OOB to chair on own once boot is on, sits for prolonged periods of time. Patient turned with assist
of [facility] and nurse Shanice, patient attempts to help. Sacrum and buttocks blanchable pink, chronic light purple discoloration on buttocks and thighs from sitting. Heels intact.
Appetite: Good, encouraged protein in diet.
Pressure redistribution devices in place: On Accumax, added air overlay to bed, air cushion on pillow under calves.
Plan: Applied alginate and large silicone foam to wound, foam adhesives to heels to protect. Will order gentamicin cream and jess wrap knee high, nurse will apply later, for arterial/venous studies today.
Confirmed the above orders with Dr. Rider and updated nurse Shanice. Updated care plan and will follow as needed.
Note to case management of equipment requested for discharge: None
Recommend follow up at wound care center upon discharge.
--- NOTE | 2023-11-14 10:06 | PTCARENOTE ---
Patient refused AM dose of IV Vanco-Dr. Rider aware. Await input from ID. Patient refusing AM dose Lactaid-does not want to eat breakfast.
[2023-11-14 12:00] VITALS: BP 138/64; PULSE 70; O2SAT 97
[2023-11-14] MEDS: LACTAID 1 CAPSULE PO ×2 (12:35→17:12)
[2023-11-14] MEDS: GENTAMICIN 0.1% CREAM 1 APPLIC TOPICAL (12:38)
--- NOTE | 2023-11-14 12:40 | W.PN.HOSP.TC ---
Today's Communication/Plan
-
d/w ID, resume Vancomycin at lower rate
Assessment / Plan
Assessment / Plan
83 years old female was sent for IV antibiotic for chronic right medial ankle ulcer with erythema. Patient denied tenderness or pain. She denied chills or fever. No leukocytosis on admission. Patient reported that wound did not look different
from before.
Physical Exam
General: Comfortable, Conversant and Morbidly Obese; No Pain, Fever or Chills
HEENT: NormoCephalic, Anicteric, Moist mucous membranes, PERRLA and [place] Conjunctivae
Respiratory: Clear; No Wheezes, Rales or Rhonchi
Cardiac: S1/S2 and Regular Rhythm; No Murmur, Rub, Gallop or Peripheral Edema
GI: Soft, Non Tender, Non Distended, Normal Bowel Sounds and No Hepatosplenomegaly
Rectal: Deferred by Provider
Genito-urinary: Deferred by me
Musculoskeletal: No Clubbing, No Cyanosis, Edema, Right Lower Extremity (+1) and Other (Chronic large open weeping wound right medial aspect of ankle with surrounding erythema which patient states is chronic); No Edema, Left Upper Extremity, Edema,
Right Upper Extremity or Edema, Left Lower Extremity
Skin: Warm, Dry and Ulcers (Chronic large open weeping wound right medial aspect of ankle with surrounding erythema which patient states is chronic, chronic Charcot right foot both feet); No Rash
Neuro: AO x 3, Nonfocal/grossly intact, Cranial Nerves Intact and No Sensory Deficits; No Slurred Speech, Facial Droop or Tremors
Psych: Calm
#Chronic nonhealing right ankle wound x 4.5 years
#HX PAD/tib-fib fracture with hardware right ankle 1995
Patient follows with Dr. Dotson completed course of amoxicillin, Bactrim, ampicillin
She was started on IV vancomycin and complained of scalp itching, was stopped
No fevers over night
-Per patient, the wound did not look different. She had no tenderness on examination.
No fevers or chills. No leukocytosis. Patient had elevated ESR and CRP in October 2023. Will recheck
-Continue Tylenol 1000 g 3 times daily scheduled
Per vascular: Not much from peripheral vascular perspective. Would recommend peripheral arterial noninvasive studies to ensure adequate perfusion for healing. But would continue with antibiotics/wound care for now.
Appreciate ID and vascular help
# Chronic Charcot deformity bilateral feet
#HTN-benign
Continue losartan/HCTZ at bedtime
#Hypothyroidism
-Continue levothyroxine 200 mcg p.o. daily
#HLD
Continue simvastatin 20 mg at bedtime
#Parox Afib
Will resume Eliquis. d/w Vascular surgery
will f/w Doppler study
2D echo 05/23/2023: EF 65%, normal LV LVSF, trace MR/aortic insufficiency, mild TR, pulm pressure 32 mmHg
#Chronic cough post-COVID
#Chronic lactose intolerance
-Continue Lactaid 1 capsule twice daily
Morbid obesity secondary to increased calorie consumption/immobiliy�BMI 47.2 kg
-Weight loss recommended, low-fat diet
DVT prophylaxis
- hold eliquis until seen by Vasc surgery
-will give sq heparin q12h
Full code
Total time spent to see the patient, examine the patient on the floor, review data and lab results, discuss treatment plan with patient, nursing staff around 55 minutes
Anticipated Discharge: 24 - 48 hours
Subjective/Interval History
-
Date of Service: November 14, 2023
No chest pain
No leg pain
No fevers
Objective Data
-
Labs:
Laboratory Results
11/14/23
05:05
WBC 5.9
Hgb 10.3 L
Hct 30.9 L
Plt Count 219
Sodium 138
Potassium 3.9
Chloride 107
Carbon Dioxide 23
BUN 32 H
Creatinine 0.7
Glucose 98
Calcium 9.4
Vital Signs:
Vital Signs
Temp Pulse Resp BP Pulse Ox
98.6 F 66 16 102/62 95
11/14/23 07:00 11/14/23 07:00 11/14/23 07:00 11/14/23 07:00 11/14/23 09:20
I&O
11/13/23 11/14/23 11/15/23
06:59 06:59 06:59
Intake Total 720 / 720
Output Total 250 / 250
Balance 470 / 470
[2023-11-14 15:01] VITALS: BP 119/49
--- NOTE | 2023-11-14 15:50 | W.PN.ID1 ---
Date of Service
Date of Service: November 14, 2023
Today's Communication
Continue antibiotics.
Assessment / Plan
Chronic medial right ankle wound with recent worsening.
Marked lower extremity edema/lymphedema
Suspected cellulitis right lower extremity
Morbid obesity
CAD
HTN
Hypothyroidism
Morbid obesity
Constipation
PAD
Recommendations:
Continue vancomycin. Patient noted some scalp itchiness last evening when it was infused. I asked nursing to reduce the infusion rate.
Local care to the wound.
Would begin light Antony wrap's, along with lower extremity elevation to the level of the heart at least 1-1/2 to 2 hours out of every 6.
����������������������������������������������������������
Chief Complaint
-: Cellulitis and Other (Chronic right leg wound.)
Subjective / Review of Systems
Review of Systems: No Fever and No Chills
Vital Signs / Physical Exam
Vital Signs
Vital Signs
Temp Pulse Resp BP Pulse Ox
98.6 F 66 16 102/62 95
11/14/23 07:00 11/14/23 07:00 11/14/23 07:00 11/14/23 07:00 11/14/23 09:20
Physical Exam
Constitutional: No Acute Distress, Comfortable, Non-toxic and Obese
Eyes: Sclera Anicteric
Pulmonary: Non Labored
Extremities: Edema (Right lower extremity) and Erythema (Right lower extremity)
Wound: Other (Right medial ankle wound dressed.)
Objective Data
Lab Data
Lab Results
11/14/23 05:05
11/14/23 05:05
ESR Cancelled 11/13/23 14:51
Estimated Creat Clear 77 ml/min 11/14/23 05:05
Lactic Acid Cancelled 11/13/23 16:15
Total Bilirubin Cancelled 06/10/24 12:52
AST Cancelled 11/13/23 12:52
ALT Cancelled 11/13/23 12:52
Alkaline Phosphatase Cancelled 11/13/23 12:52
C-Reactive Protein Cancelled 11/13/23 14:51
Most recent labs reviewed.
Micro Results:
11/13/23 12:52 Blood Culture - Preliminary
Blood/Venous No Growth in 24 hours- Final report to follow
11/13/23 12:51 Blood Culture - Preliminary
Blood/Venous No Growth in 24 hours- Final report to follow
11/13/23 18:30 MRSA Screen - Pending
Nose
Imaging:
09/19/2022 MRI right ankle: There is no discrete abscess or fluid collection. There is no finding to suggest osteomyelitis. There is mild soft tissue edema. The previous exam revealed significant tenosynovitis with fluid surrounding the flexor
digitorum longus tendon. This is no longer visualized. There is atrophy of the distal lower leg muscles however the tendons are intact. There is continued increased degenerative joint disease at the tibiotalar joint, which appears to be more
unstable on the current exam. There is persistent lateral deviation of the foot with regard to the ankle. Severe artifact overlying the distal fibula hardware and the screws overlying the medial malleolus. A subtle area of abnormality could easily
be missed due to this artifact. No definite finding to suggest osteomyelitis however the exam is severely limited as described. No acute fracture or dislocation.
Care Review
Plan reviewed with: Physician (Hospitalist)
[2023-11-14] MEDS: VANCOCIN 200 IV (17:13)
[2023-11-14] MEDS: ELIQUIS 5 MG PO (20:06)
[2023-11-14] MEDS: HYZAAR 100-25 TABLET 1 TAB PO (22:04)
[2023-11-14] MEDS: LIPITOR 10 MG PO (22:04)
[2023-11-14 22:15] VITALS: BP 112/56
--- NOTE | 2023-11-15 03:40 | PTCARENOTE ---
Addendum entered by Yuan Ward RN 11/15/23 06:19:
Pt refuses to be turned or changed this morning.Pt prefers to sleep,doesn't like to be woken up.Plan of care continued.Call mccain in reach.
Original Note:
Pt aaox3 able to make her needs known, denies pain.At change of shift Pt c/o itching at the vancomycin site & IV,site is red,inflammed.Pt IV was discontinued & medication vancomycin only half bag was completed.Pt asymptomatic otherwise. Pt has some
old scattered red pinpoint rash as per pt they are not new & she had them before.Pt refuses for Ice pack for right arm, IV team checked pt site & placed new IV on pt. Pt tough stick.TRANSPORT RN motion graphics designer was made aware of pt refusing for anymore dose of IV
vancomycin as she has had 2 doses already. Plan of care continued & pt continued to be monitored.Call mccain in reach.
[2023-11-15 04:45] LABS: % Basophils 0.5 % (0-2); % Eosinophils 6.2 % (0-6); % Immature Granulocytes 0.2 % (0-0.5); % Lymphocytes 32.3 % (20.5-51.1); % Monocytes 10.9 % (1.7-9.3); % Neutrophils 49.9 % (42.2-75.2); Absolute Eosinophils 0.4 10^3/uL (0-0.7); Absolute Lymphocytes 1.8 10^3/uL (1.2-3.4); Absolute Monocytes 0.6 10^3/uL (0.1-0.6); Absolute Neutrophils 2.8 10^3/uL (1.4-6.5); Hematocrit 30.9 % (37.0-47.0); Hemoglobin 10.5 g/dL (12.0-16.0); Mean Corpuscular Hgb 29.7 pg (27.0-31.0); Mean Corpuscular Volume 87.5 fL (81.0-99.0); Mean Platelet Volume 9.7 fL (7.4-10.4); Nucleated Red Blood Cells % 0 %; Platelet Count 210 10^3/uL (130-400); Red Blood Cell Count 3.53 10^6/uL (4.20-5.40); Red Cell Dist. Width 14.3 % (11.5-14.5); White Blood Cell Count 5.7 10^3/uL (4.8-10.8)
[2023-11-15 05:14] LABS: Blood Urea Nitrogen 31 mg/dl (7-17); Calcium 9.3 mg/dl (8.4-10.2); Carbon Dioxide 23 mmol/L (22-30); Chloride 106 mmol/L (98-107); Estimated Creatinine Clearance 89 ml/min; Glucose 103 mg/dl (70-99); Potassium 3.6 mmol/L (3.5-5.1); Sodium 135 mmol/L (135-145); eGFR > 60.00
[2023-11-15] MEDS: SYNTHROID 200 MCG PO (05:58)
[2023-11-15] MEDS: VANCOCIN IV (06:17)
[2023-11-15 07:55] VITALS: BP 117/56
--- NOTE | 2023-11-15 08:02 | W.PN.UPDATE ---
Update Note
Progress Note Update
Noninvasive lower extremity arterial imaging studies from yesterday reviewed. TBI's within normal limits bilaterally (ABIs noncompressible). Multiphasic waveforms with no velocity elevations to suggest any significant stenosis. I suspected dental
think this is a primary arterial driven problem. Therefore nothing further would offer at this point. Discussed via [place] text with hospitalist yesterday.
[2023-11-15] MEDS: FLORASTOR 250 MG PO (09:31)
[2023-11-15] MEDS: ELIQUIS 5 MG PO (09:32)
[2023-11-15] MEDS: GENTAMICIN 0.1% CREAM 1 APPLIC TOPICAL (09:32)
[2023-11-15] MEDS: TYLENOL 1000 MG PO ×2 (09:32→16:14)
[2023-11-15] MEDS: LACTAID PO (09:33)
--- NOTE | 2023-11-15 11:44 | W.PN.ID1 ---
Date of Service
Date of Service: November 15, 2023
Today's Communication
Transition vancomycin to Keflex. Continue lower extremity Antony wrap's.
Assessment / Plan
Chronic medial right ankle wound with recent worsening.
Marked lower extremity edema/lymphedema
Suspected cellulitis right lower extremity
Morbid obesity
CAD
HTN
Hypothyroidism
Morbid obesity
Constipation
PAD
Recommendations:
Overall, I suspect ongoing erythema (which is improved today with the application of Antony wrap's) secondary to underlying edema rather than infection.
Patient has been extensively counseled on the need for lower extremity compressive modalities (Antony wrap's would likely be most efficacious at this time), along with lower extremity elevation above the level of the heart for 2 hours out of every 6.
Given appearance of lower extremity wound, healing will be exceedingly slow, and I suspect her may also be a component of venous insufficiency going on given its location.
Discontinue further vancomycin and transition to oral Keflex for an additional 5 days.
Patient will need to continue to follow with outpatient wound care.
Can discontinue further topical gentamicin at this time as I doubt it is providing any additional benefit.
����������������������������������������������������������
Chief Complaint
-: Cellulitis and Other (Chronic right leg wound.)
Subjective / Review of Systems
Patient seen and examined. Overall feels well. Antony wrap's have been applied to the lower extremities. Last evening, patient reported a small amount of erythema on her right arm infusion site and vancomycin was discontinued and IV site was
replaced. Patient is refused further administration of vancomycin.
Vital Signs / Physical Exam
Vital Signs
Vital Signs
Temp Pulse Resp BP Pulse Ox
98.4 F 68 16 117/56 96
11/15/23 07:55 11/15/23 07:55 11/15/23 07:55 11/15/23 07:55 11/15/23 07:55
Physical Exam
Constitutional: No Acute Distress, Comfortable, Non-toxic and Obese
Eyes: Sclera Anicteric
Cardiovascular: S1/S2; Negative S3/S4
Pulmonary: Non Labored
Extremities: Edema (Right lower extremity) and Erythema (Right lower extremity)
Wound: Other (Right medial ankle wound dressed.)
Neurological: Awake and Alert
Psychological: Calm
Objective Data
Lab Data
Lab Results
11/15/23 04:27
11/15/23 04:27
ESR Cancelled 11/13/23 14:51
Estimated Creat Clear 89 ml/min 11/15/23 04:27
Lactic Acid Cancelled 11/13/23 16:15
Total Bilirubin Cancelled 11/13/23 12:52
AST Cancelled 11/13/23 12:52
ALT Cancelled 11/13/23 12:52
Alkaline Phosphatase Cancelled 11/13/23 12:52
C-Reactive Protein Cancelled 11/13/23 14:51
Most recent labs reviewed.
Micro Results:
11/13/23 18:30 MRSA Screen - Final
Nose No Methicillin Resistant Staphylococcus aureus isolated.
11/13/23 12:52 Blood Culture - Preliminary
Blood/Venous No Growth in 24 hours- Final report to follow
11/13/23 12:51 Blood Culture - Preliminary
Blood/Venous No Growth in 24 hours- Final report to follow
Imaging:
09/19/2022 MRI right ankle: There is no discrete abscess or fluid collection. There is no finding to suggest osteomyelitis. There is mild soft tissue edema. The previous exam revealed significant tenosynovitis with fluid surrounding the flexor
digitorum longus tendon. This is no longer visualized. There is atrophy of the distal lower leg muscles however the tendons are intact. There is continued increased degenerative joint disease at the tibiotalar joint, which appears to be more
unstable on the current exam. There is persistent lateral deviation of the foot with regard to the ankle. Severe artifact overlying the distal fibula hardware and the screws overlying the medial malleolus. A subtle area of abnormality could easily
be missed due to this artifact. No definite finding to suggest osteomyelitis however the exam is severely limited as described. No acute fracture or dislocation.
Care Review
Plan reviewed with: Physician (Hospitalist)
[2023-11-15] MEDS: LACTAID 1 CAPSULE PO (11:55)
[2023-11-15] MEDS: KEFLEX 500 MG PO (12:07)
--- NOTE | 2023-11-15 13:03 | CM ---
Miriam is being discharged back to [facility] today with plan for wound care at the wound care center. [facility] nurses will provide daily wound care needs.
W/C van arranged for discharge to [facility] at 1630 today; Miriam will have family call to pay $90 for w/c van cost.
[2023-11-15 15:00] VITALS: BP 118/67
[2023-11-15 15:44] VITALS: BP 118/67
== END 2023-11-15 17:11 | disposition home health service (06) | DRG 593 ==
LOC: 4 EAST ACU 14:21
PROVIDERS: Clinical Nurse Specialist Family Health; ADMITTING PHYSICIAN Internal Medicine; CONSULT PHYSICIAN Internal Medicine Infectious Disease; CONSULT PHYSICIAN Surgery Vascular Surgery; EMERGENCY PHYSICIAN Emergency Medicine; FAMILY PHYSICIAN Family Medicine
DX: L97.319 Non-pressure chronic ulcer of right ankle with unspecified severity (principal); L03.115 Cellulitis of right lower limb; Z68.42 Body mass index [BMI] 45.0-49.9, adult; I48.0 Paroxysmal atrial fibrillation; I89.0 Lymphedema, not elsewhere classified; Z79.01 Long term (current) use of anticoagulants; E66.01 Morbid (severe) obesity due to excess calories
CPT/HCPCS: 73610; 80048; 80202; 83605; 85025; 85652; 86140; 87040; 87070; 93922; 93925; 93970; 97162; 97166; 99285

== ENCOUNTER → 2023-12-21 10:10 | Outpatient (REF) | payer OTHER, SELFPAY | LOC: WOUND 10:10 | PROVIDERS: ATTENDING PHYSICIAN Surgery; FAMILY PHYSICIAN Family Medicine | DX: L97.313 Non-pressure chronic ulcer of right ankle with necrosis of muscle (principal); M14.671 Charcot's joint, right ankle and foot; M14.672 Charcot's joint, left ankle and foot | CPT/HCPCS: 88305; 11042; 11104; 11105 ==

== ENCOUNTER → 2024-06-18 11:14 | Outpatient (REF) | payer OTHER, SELFPAY ==
[2024-06-18 12:36] LABS: Hematocrit 31.7 % (37.0-47.0); Hemoglobin 10.3 g/dL (12.0-16.0); Mean Corp Hgb Conc. 32.5 g/dL (33.0-37.0); Mean Corpuscular Hgb 29.6 pg (27.0-31.0); Mean Corpuscular Volume 91.1 fL (81.0-99.0); Mean Platelet Volume 10.5 fL (7.4-10.4); Platelet Count 255 10^3/uL (130-400); Red Blood Cell Count 3.48 10^6/uL (4.20-5.40); Red Cell Dist. Width 14.7 % (11.5-14.5); White Blood Cell Count 6.7 10^3/uL (4.8-10.8)
[2024-06-18 13:37] LABS: ALT (SGPT) 16 U/L (0-35); AST (SGOT) 24 U/L (14-36); Albumin 3.5 g/dl (3.5-5.0); Alkaline Phosphatase 80 U/L (38-126); Blood Urea Nitrogen 42 mg/dl (7-17); Calcium 9.4 mg/dl (8.4-10.2); Carbon Dioxide 23 mmol/L (22-30); Chloride 102 mmol/L (98-107); Glucose 95 mg/dl (70-99); HDL Cholesterol 50 mg/dl; LDL Cholesterol, Calculated 83 mg/dl; Potassium 4.6 mmol/L (3.5-5.1); Sodium 134 mmol/L (135-145); Total Bilirubin 0.3 mg/dl (0.2-1.3); Total Cholesterol 154 mg/dl (50-199); Total Protein 6.6 g/dl (6.3-8.2); Triglyceride 108 mg/dl (10-149); Very Low Density Lipoprotein 21 mg/dl (0-30); eGFR > 60.00
== END ==
LOC: OLABP 11:14
PROVIDERS: ATTENDING PHYSICIAN Family Medicine
DX: M19.90 Unspecified osteoarthritis, unspecified site (principal); M84.672K Pathological fracture in other disease, left ankle, subsequent encounter for fracture with nonunion; E66.01 Morbid (severe) obesity due to excess calories; I10 Essential (primary) hypertension; E78.5 Hyperlipidemia, unspecified; I89.0 Lymphedema, not elsewhere classified; M81.0 Age-related osteoporosis without current pathological fracture
CPT/HCPCS: 36415; 80053; 80061; 84443; 85027

== ENCOUNTER → 2024-08-15 11:31 | Outpatient (REF) | payer OTHER, SELFPAY ==
[2024-08-15 13:05] LABS: TSH 2.02 uIU/ml (0.47-4.68)
== END ==
LOC: OLABP 11:31
PROVIDERS: ATTENDING PHYSICIAN Family Medicine
DX: M19.90 Unspecified osteoarthritis, unspecified site (principal); M84.672K Pathological fracture in other disease, left ankle, subsequent encounter for fracture with nonunion; E66.01 Morbid (severe) obesity due to excess calories; I10 Essential (primary) hypertension; E78.5 Hyperlipidemia, unspecified; I89.0 Lymphedema, not elsewhere classified; M81.0 Age-related osteoporosis without current pathological fracture
CPT/HCPCS: 36415; 84443

== ENCOUNTER → 2024-09-26 11:24 | Outpatient (REF) | payer OTHER, SELFPAY ==
[2024-09-26 13:07] LABS: TSH 3.64 uIU/ml (0.47-4.68)
== END ==
LOC: OLABP 11:24
PROVIDERS: ATTENDING PHYSICIAN Family Medicine
DX: M19.90 Unspecified osteoarthritis, unspecified site (principal); M84.672K Pathological fracture in other disease, left ankle, subsequent encounter for fracture with nonunion; E66.01 Morbid (severe) obesity due to excess calories; I10 Essential (primary) hypertension; E78.5 Hyperlipidemia, unspecified; I89.0 Lymphedema, not elsewhere classified; M81.0 Age-related osteoporosis without current pathological fracture
CPT/HCPCS: 36415; 84443

== ENCOUNTER → 2024-11-27 10:32 | Outpatient (REF) | payer OTHER, SELFPAY ==
[2024-11-27 11:12] LABS: % Basophils 0.7 % (0-2); % Eosinophils 2.1 % (0-6); % Immature Granulocytes 0.4 % (0-0.5); % Lymphocytes 24.9 % (20.5-51.1); % Monocytes 13.9 % (1.7-9.3); Absolute Eosinophils 0.1 10^3/uL (0-0.7); Absolute Lymphocytes 1.3 10^3/uL (1.2-3.4); Absolute Monocytes 0.7 10^3/uL (0.1-0.6); Absolute Neutrophils 3.1 10^3/uL (1.4-6.5); Hemoglobin 10.6 g/dL (12.0-16.0); Mean Corp Hgb Conc. 33.1 g/dL (33.0-37.0); Mean Corpuscular Hgb 29.4 pg (27.0-31.0); Mean Corpuscular Volume 88.6 fL (81.0-99.0); Mean Platelet Volume 10.8 fL (7.4-10.4); Nucleated Red Blood Cells % 0 %; Platelet Count 230 10^3/uL (130-400); Red Blood Cell Count 3.61 10^6/uL (4.20-5.40); Red Cell Dist. Width 14.9 % (11.5-14.5); White Blood Cell Count 5.3 10^3/uL (4.8-10.8)
[2024-11-27 11:39] LABS: ALT (SGPT) 16 U/L (0-35); AST (SGOT) 24 U/L (14-36); Albumin 3.6 g/dl (3.5-5.0); Alkaline Phosphatase 84 U/L (38-126); Blood Urea Nitrogen 33 mg/dl (7-17); Calcium 9.4 mg/dl (8.4-10.2); Carbon Dioxide 25 mmol/L (22-30); Chloride 106 mmol/L (98-107); Glucose 99 mg/dl (70-99); HDL Cholesterol 53 mg/dl; LDL Cholesterol, Calculated 84 mg/dl; Potassium 4.3 mmol/L (3.5-5.1); Sodium 135 mmol/L (135-145); Total Bilirubin 0.4 mg/dl (0.2-1.3); Total Cholesterol 153 mg/dl (50-199); Total Protein 6.6 g/dl (6.3-8.2); Triglyceride 84 mg/dl (10-149); Very Low Density Lipoprotein 16 mg/dl (0-30); eGFR > 60.00
== END ==
LOC: OLABP 10:32
PROVIDERS: ATTENDING PHYSICIAN Family Medicine
DX: E66.01 Morbid (severe) obesity due to excess calories (principal); M19.90 Unspecified osteoarthritis, unspecified site; M84.672K Pathological fracture in other disease, left ankle, subsequent encounter for fracture with nonunion; I10 Essential (primary) hypertension; E78.5 Hyperlipidemia, unspecified; I89.0 Lymphedema, not elsewhere classified; M81.0 Age-related osteoporosis without current pathological fracture
CPT/HCPCS: 36415; 80053; 80061; 85025

== ENCOUNTER → 2025-01-30 10:44 | Outpatient (REF) | payer OTHER, SELFPAY ==
[2025-01-30 11:26] LABS: ALT (SGPT) 13 U/L (0-35); AST (SGOT) 20 U/L (14-36); Albumin 3.3 g/dl (3.5-5.0); Alkaline Phosphatase 63 U/L (38-126); Blood Urea Nitrogen 54 mg/dl (7-17); Calcium 8.9 mg/dl (8.4-10.2); Carbon Dioxide 25 mmol/L (22-30); Chloride 105 mmol/L (98-107); Glucose 98 mg/dl (70-99); Potassium 4.0 mmol/L (3.5-5.1); Sodium 134 mmol/L (135-145); Total Protein 6.2 g/dl (6.3-8.2); eGFR > 60.00
== END ==
LOC: OLABP 10:44
PROVIDERS: ATTENDING PHYSICIAN Family Medicine
DX: M19.90 Unspecified osteoarthritis, unspecified site (principal); E66.01 Morbid (severe) obesity due to excess calories; I89.0 Lymphedema, not elsewhere classified; E78.5 Hyperlipidemia, unspecified; I10 Essential (primary) hypertension
CPT/HCPCS: 36415; 80053

== ENCOUNTER → 2025-02-14 11:16 | Outpatient (REF) | payer OTHER, SELFPAY ==
[2025-02-14 12:11] LABS: Blood Urea Nitrogen 49 mg/dl (7-17); Calcium 8.6 mg/dl (8.4-10.2); Carbon Dioxide 24 mmol/L (22-30); Chloride 105 mmol/L (98-107); Glucose 92 mg/dl (70-99); Potassium 4.2 mmol/L (3.5-5.1); Sodium 135 mmol/L (135-145); eGFR > 60.00
== END ==
LOC: OLABP 11:16
PROVIDERS: ATTENDING PHYSICIAN Family Medicine
DX: M19.90 Unspecified osteoarthritis, unspecified site (principal); E66.01 Morbid (severe) obesity due to excess calories; M81.0 Age-related osteoporosis without current pathological fracture; I89.0 Lymphedema, not elsewhere classified; I10 Essential (primary) hypertension; E78.5 Hyperlipidemia, unspecified
CPT/HCPCS: 36415; 80048

== ENCOUNTER → 2025-05-19 11:22 | Outpatient (REF) | payer OTHER, SELFPAY ==
[2025-05-19 12:29] LABS: Blood Urea Nitrogen 45 mg/dl (7-17); Calcium 8.8 mg/dl (8.4-10.2); Carbon Dioxide 22 mmol/L (22-30); Chloride 102 mmol/L (98-107); Glucose 98 mg/dl (70-99); HDL Cholesterol 54 mg/dl; LDL Cholesterol, Calculated 70 mg/dl; Potassium 3.8 mmol/L (3.5-5.1); Sodium 132 mmol/L (135-145); Very Low Density Lipoprotein 15 mg/dl (0-30); eGFR > 60.00
== END ==
LOC: OLABP 11:22
PROVIDERS: ATTENDING PHYSICIAN Family Medicine
DX: M19.90 Unspecified osteoarthritis, unspecified site (principal); I10 Essential (primary) hypertension; E78.5 Hyperlipidemia, unspecified; I89.0 Lymphedema, not elsewhere classified; E66.01 Morbid (severe) obesity due to excess calories; M81.0 Age-related osteoporosis without current pathological fracture
CPT/HCPCS: 36415; 80048; 80061

== ENCOUNTER → 2025-05-22 10:31 | Outpatient (REF) | payer OTHER, SELFPAY ==
[2025-05-22 12:02] LABS: Calcium 9.0 mg/dl (8.4-10.2); Carbon Dioxide 23 mmol/L (22-30); Chloride 102 mmol/L (98-107); Glucose 91 mg/dl (70-99); Potassium 4.0 mmol/L (3.5-5.1); Sodium 133 mmol/L (135-145); eGFR > 60.00
[2025-05-22 12:16] LABS: Blood Urea Nitrogen 48 mg/dl (7-17)
== END ==
LOC: OLABP 10:31
PROVIDERS: ATTENDING PHYSICIAN Family Medicine
DX: M19.90 Unspecified osteoarthritis, unspecified site (principal); M84.672K Pathological fracture in other disease, left ankle, subsequent encounter for fracture with nonunion; E66.01 Morbid (severe) obesity due to excess calories; I10 Essential (primary) hypertension; E78.5 Hyperlipidemia, unspecified; I89.0 Lymphedema, not elsewhere classified; M81.0 Age-related osteoporosis without current pathological fracture
CPT/HCPCS: 36415; 80048

== ENCOUNTER → 2025-05-26 11:25 | Outpatient (REF) | payer OTHER, SELFPAY ==
[2025-05-26 12:15] LABS: Blood Urea Nitrogen 53 mg/dl (7-17); Calcium 8.9 mg/dl (8.4-10.2); Carbon Dioxide 21 mmol/L (22-30); Chloride 104 mmol/L (98-107); Glucose 98 mg/dl (70-99); Potassium 3.8 mmol/L (3.5-5.1); Sodium 133 mmol/L (135-145); eGFR > 60.00
[2025-05-26 12:44] LABS: TSH 4.85 uIU/ml (0.47-4.68)
== END ==
LOC: OLABP 11:25
PROVIDERS: ATTENDING PHYSICIAN Family Medicine
DX: I10 Essential (primary) hypertension (principal); E78.5 Hyperlipidemia, unspecified; I89.0 Lymphedema, not elsewhere classified; M81.0 Age-related osteoporosis without current pathological fracture; E66.01 Morbid (severe) obesity due to excess calories; M19.90 Unspecified osteoarthritis, unspecified site
CPT/HCPCS: 36415; 80048; 84443

== ENCOUNTER → 2025-06-04 11:40 | Outpatient (REF) | payer OTHER, SELFPAY ==
[2025-06-04 13:10] LABS: Blood Urea Nitrogen 47 mg/dl (7-17); Calcium 9.1 mg/dl (8.4-10.2); Carbon Dioxide 23 mmol/L (22-30); Chloride 102 mmol/L (98-107); Glucose 90 mg/dl (70-99); Potassium 4.0 mmol/L (3.5-5.1); Sodium 132 mmol/L (135-145); eGFR > 60.00
== END ==
LOC: OLABP 11:40
PROVIDERS: ATTENDING PHYSICIAN Family Medicine
DX: M19.90 Unspecified osteoarthritis, unspecified site (principal); I10 Essential (primary) hypertension; E78.5 Hyperlipidemia, unspecified; M84.672K Pathological fracture in other disease, left ankle, subsequent encounter for fracture with nonunion; I89.0 Lymphedema, not elsewhere classified; M81.0 Age-related osteoporosis without current pathological fracture; E66.01 Morbid (severe) obesity due to excess calories
CPT/HCPCS: 36415; 80048